=== PATIENT | female | born 1950 | race Caucasian/White ===

== ENCOUNTER 2020-10-30 00:04 | Outpatient (CLI) | payer MEDICARE, BC, SELFPAY ==
[2020-10-30 19:18] LABS: SARS-CoV-2 RNA PCR Negative
== END 2020-10-30 00:05 | disposition home or self-care (01) ==
LOC: ANHCOVIDDT 00:05
PROVIDERS: PCP Family Medicine; Visit Provider Internal Medicine Gastroenterology
DX: Z01.812 Encounter for preprocedural laboratory examination (principal); Z20.822 Contact with and (suspected) exposure to COVID-19
CPT/HCPCS: C9803; U0003; U0005

== ENCOUNTER 2020-11-02 00:20 | Day surgery (SDC) | payer MEDICARE, BC, SELFPAY ==
[2020-10-04 09:11] VITALS: BMI 37.8
--- NOTE | 2020-10-12 10:32 | PC.NURSE ---
PT WAS RE-SCHEDULED FROM 10/12/2020-INTERVIEW DONE 10/04/2020- PT DENIES ANY CHANGES IN HEALTH STATUS AND MEDICATIONS. REVIEWED DATES AND TIMES OF PROCEDURE AND TESTING WITH PATIENT
[2020-11-02 06:26] VITALS: BP 148/81; PULSE 88; RESP 16; TEMP 36.3; O2SAT 98
[2020-11-02] MEDS: LACTATED RINGERS 1,000 ML 150 ML IV CONT (06:31)
--- NOTE | 2020-11-02 07:13 | P.PNAN_ITS ---
Anes - Initial Pre Proc Eval Procedure: Operation Date: 11/02/20 07:30 Proposed Procedures p Screening Colonoscopy - Arie Hsieh MD Date/Time: 11/02/20 07:13 Surgeon: Arie Hsieh MD Pre Op Diagnosis: hx colon polyps Patient Data Age: 70 Gender: F Height: 5 ft 4 in Weight: 100.2 kg Last Vital Signs Temp 97.3 F L 11/02/20 06:26 Pulse 88 11/02/20 06:26 Resp 16 11/02/20 06:26 BP 148/81 H 11/02/20 06:26 Pulse Ox 98 11/02/20 06:26 Allergies Allergy/AdvReac Type Severity Reaction Status Date / Time Sulfa (Sulfonamide Allergy Unknown Rash Verified 11/02/20 06:25 Antibiotics) Home Medications Medication Instructions Recorded Confirmed Type indapamide 1.25 mg PO DAILY 10/04/20 10/04/20 History losartan 100 mg PO DAILY 10/04/20 10/04/20 History Patient hx anesthesia problems: none Family hx anesthesia problems: none [facility] Past Medical History Medical History (Updated 11/02/20 @ 07:11 by Yovanny Colon MD) Hyperlipidemia Hypertension Social History Social History Smoking status: Never smoker Alcohol intake: never Substance use type: does not use Living arrangements: with family Spiritual care concerns: No Anes - Eval Final PreProcedure Day of Procedure 11/02/20 07:13 Patient weight: obese Heart: regular rate and rhythm Lungs: clear to auscultation Airway: Mallampati scale class II Neurological: alert and oriented Last oral intake: >/= 8 hours ASA classification: III Emergent: no Anesthetic plan: proceed Anesthesia type and monitoring: general GIVS and standard monitoring Informed Consent: The patient's anesthetic plan and its attendant risks and benefits were discussed with the patient/family/POA. Questions were solicited and answers provided to the satisfaction of the patient/family/POA.
--- NOTE | 2020-11-02 07:20 | WPDGICN ---
Assessment and Plan Assessment and plan (1) History of colon polyps: Code(s): Z86.010 - Personal history of colonic polyps Status: Acute Assessment and Plan: Patient has a history of colon polyps. Most recent colonoscopy was in 2014. Plan is for surveillance colonoscopy at this time and at Five year intervals in the future. GI Consult Note Consult date/time: 11/02/20 07:20 HPI: Idania Holguin is a 70 year old female Seen in evaluation at the request of Dr. Mateus Rivas. patient has a history of colon polyps. Most recently 6 years ago. She presents today for follow-up examination. Her current weight appetite bowel movements are normal. She denies abdominal pain. Family history is noncontributory. Patient denies any bleeding or weight loss. Review of Systems Review of Systems: All systems reviewed & are unremarkable except as noted in HPI and below PMFSH Past Medical History Medical History (Updated 11/02/20 @ 07:22 by Arie Hsieh MD) Hyperlipidemia Hypertension Social History Social History Smoking status: Never smoker Alcohol intake: never Substance use type: does not use Living arrangements: with family Spiritual care concerns: No Meds Home Medications and Allergies Home Medications Medication Instructions Recorded Confirmed Type indapamide 1.25 mg PO DAILY 10/04/20 10/04/20 History losartan 100 mg PO DAILY 10/04/20 10/04/20 History Allergies Allergy/AdvReac Type Severity Reaction Status Date / Time Sulfa (Sulfonamide Allergy Unknown Rash Verified 11/02/20 06:25 Antibiotics) Vital Signs Vital Signs - 24 hr 11/02/20 06:26 Temperature 97.3 F L Pulse Rate 88 Respiratory Rate 16 Blood Pressure 148/81 H Pulse Oximetry 98 Exam Narrative: Exam Narrative: Physical exam reveals patient to be alert. Vital signs stable. HEENT exam is unremarkable. Lungs are clear to auscultation and percussion. Heart is without murmur or extra sounds. Abdominal exam bowel sounds are present soft nontender with no organomegaly. Digital external rectal exam is normal.
[2020-11-02 07:44] VITALS: BP 119/71; PULSE 77; RESP 19; O2SAT 100
[2020-11-02 07:54] VITALS: BP 124/73; PULSE 72; RESP 17; O2SAT 99
== END 2020-11-02 08:17 | disposition home or self-care (01) ==
PROVIDERS: PCP Family Medicine; Visit Provider Internal Medicine Gastroenterology
PROC: 0DJD8ZZ Inspection of Lower Intestinal Tract, Via Natural or Artificial Opening Endoscopic (ICD-10-PCS; CPT 45378; principal; 2020-11-02 07:30)
DX: Z12.11 Encounter for screening for malignant neoplasm of colon (principal); D12.2 Benign neoplasm of ascending colon; K57.30 Diverticulosis of large intestine without perforation or abscess without bleeding; K64.8 Other hemorrhoids; I10 Essential (primary) hypertension; E78.5 Hyperlipidemia, unspecified; E66.9 Obesity, unspecified; Z68.37 Body mass index [BMI] 37.0-37.9, adult
CPT/HCPCS: 45385; 88305; J2704; J7120

== ENCOUNTER → 2021-03-25 14:58 | Outpatient (CLI) | payer MEDICARE, BC, SELFPAY ==
--- NOTE | ~2021-03-25 | MM_ITS ---
EXAMINATION: MM screening [facility] BI w [facility] HISTORY: Screening TECHNIQUE: Craniocaudal and mediolateral oblique 3-D tomosynthesis images were obtained and synthetic 2-D images were generated. CAD analysis was submitted and interpreted. COMPARISON: Comparison to multiple prior studies sequentially, with oldest reviewed study dated 04/2018. BREAST PARENCHYMAL COMPOSITION: There are scattered areas of fibroglandular density. FINDINGS: There is no evidence of suspicious mass, calcification, or architectural distortion to sugg est malignancy in either breast. There has been no suspicious interval change. IMPRESSION: 1. No mammographic evidence of malignancy. 2. Recommend routine screening mammography in one year. BI-RADS Category 1: Negative Reviewed, dictated and finalized at location A.
--- NOTE | ~2021-03-25 | DEXA_ITS ---
Bone Density Report Name: Idania Holguin Age: 70 Sex: Female Ethnicity: White Date of : 1950 Indication: postmenopausal; screening for osteoporosis; height loss; Referring Provider: Edith Palmer Study: Bone densitometry was performed. Exam Date: March 25, 2021 Accession number: [id number] Bone Density: Region BMD T-score Z-score Classification AP Spine (L1-L4) 1.271 2.0 4.1 Normal Femoral Neck (Left) 1.013 1.5 3.3 Normal Total Hip (Left) 1.277 2.7 4.2 Normal Femoral Neck (Right) 1.065 1.9 3.7 Normal Total Hip (Right) 1.074 1.1 2.6 Normal Total Hip Mean 1.176 1.9 3.4 Normal World Health Organization criteria for BMD impression classify patients as: Normal (T-score at or above -1.0), Osteopenia (T-score between -1.0 and -2.5), or Osteoporosis (T-score at or below -2.5). 10-year Fracture Risk: FRAX not reported because: All T-scores for Spine Total, Hip Total, Femoral Neck at or above -1.0 Previous Exams: Region Exam Age BMD T-score BMD Change BMD Change Date g/cm2 vs Baseline vs Previous AP Spine(L1-L4) 03/25/2021 70 1.271 2.0 -0.035 0.006 01/28/2016 65 1.264 2.0 -0.042* 0.002 04/17/2010 59 1.262 2.0 -0.044* -0.037 08/04/2007 57 1.299 2.3 -0.007 -0.007 03/24/2005 54 1.306 2.4 Total Hip(Left) 03/25/2021 70 1.277 2.7 -0.076 0.022 01/28/2016 65 1.255 2.6 -0.098* 0.081* 04/17/2010 59 1.173 1.9 -0.179* -0.104 08/04/2007 57 1.278 2.8 -0.075 -0.075 03/24/2005 54 1.353 3.4 Total Hip(Right) 03/25/2021 70 1.074 1.1 -0.222 -0.107 01/28/2016 65 1.181 2.0 -0.115* 0.060* 04/17/2010 59 1.121 1.5 -0.175* -0.108 08/04/2007 57 1.229 2.3 -0.067 -0.067 03/24/2005 54 1.296 2.9 *Denotes significance at 95% confidence level, LSC for AP Spine = 0.022 g/cm2, LSC for Total Hip = 0.027 g/cm2 Clinical Information Provided by Patient: Patient maximum height was 64.5 Menopause Age: 58 Does not regularly consume dairy products Drinks caffeinated beverages Onset of menses at age 14 Number of children 2 Impression: The patient has normal bone mass. No significant bone loss was observed. Discussion: LOW RISK OF FRACTURE; BONE DENSITY IS WELL ABOVE THE
== END ==
PROVIDERS: PCP Family Medicine; Visit Provider Obstetrics & Gynecology
DX: Z12.31 Encounter for screening mammogram for malignant neoplasm of breast (principal); Z78.0 Asymptomatic menopausal state
CPT/HCPCS: 77063; 77067; 77080

== ENCOUNTER 2023-10-24 16:33 | Emergency (ER) | payer MEDICARE, BC, SELFPAY ==
[2023-10-24 16:44] VITALS: BP 129/69; PULSE 83; RESP 16; TEMP 37; O2SAT 99
[2023-10-24 16:46] VITALS: BP 129/69; PULSE 83; RESP 16; TEMP 37; O2SAT 99
--- NOTE | 2023-10-24 16:46 | ED.GENADULT ---
HPI - General Adult General Chief complaint: Ear Stated complaint: sharp pain both ears Time Seen by Provider: 10/24/23 16:47 Source: patient, RN notes reviewed and old records reviewed Mode of arrival: ambulatory Limitations: no limitations History of Present Illness HPI narrative: Patient did 73-year-old female presents to the [facility] with complaints of bilateral ear pain. Describes it is being very sharp. States she has stabbing pains occasionally in both ears. The left 1 started last night, right 1 started today. Denies any sinus congestion, states that she does have a scratchy throat No treatment prior to arrival Related Data Home Medications Medication Instructions Recorded Confirmed losartan 100 mg tablet 100 mg PO DAILY 10/04/20 10/24/23 turmeric root extract 500 mg tablet 500 mg PO DAILY 01/27/23 10/24/23 glucosamine sulfate 500 mg tablet 500 mg PO DAILY 10/24/23 10/24/23 (Glucosamine) Allergies Allergy/AdvReac Type Severity Reaction Status Date / Time Sulfa (Sulfonamide Allergy Unknown Rash Verified 10/24/23 16:55 Antibiotics) Review of Systems Review of Systems: All systems reviewed & are unremarkable except as noted in HPI and below Constitutional: Constitutional: Reports no additional constitutional complaints Eyes: Eyes: Reports no additional eye complaints ENT: Reports as per HPI, Reports otalgia and Reports sore throat Cardiovascular: Cardiovascular: Reports no additional cardiovascular complaints, Denies chest pain and Denies dyspnea Respiratory: Respiratory: Reports no additional respiratory complaints, Denies chest congestion, Denies cough and Denies dyspnea Gastrointestinal: Gastrointestinal: Reports no additional gastrointestinal complaints, Denies abdominal pain, Denies nausea and Denies vomiting Musculoskeletal: Musculoskeletal: Reports no additional musculoskeletal complaints Integumentary/Breasts: Skin/Breast: Reports system reviewed and no additional complaints, except as docu Neurologic: Reports system reviewed and no additional complaints, except as documented Psychiatric: Psychiatric: Reports no additional psychiatric complaints Allergic/Immunologic: Allergic/Immunologic: Reports no additional allergic/immunologic complaints PMFSH Past Medical History Medical History Hyperlipidemia Hypertensive chronic kidney disease Mild atherosclerosis of carotid artery Morbid obesity Obesity Prediabetes Primary generalized (osteo)arthritis Stage 3a chronic kidney disease Stage 3b chronic kidney disease Social History Social History Smoking status: Never smoker Second hand tobacco smoke exposure: No Alcohol intake: current Alcohol use details: occassionally Substance use: never Substance use type: does not use Lack of Transportation: No Lack of Food: Never True Current Housing: I Have Housing Concerned About Future Housing: No Difficulty Paying Gas/Electric Bills: No Difficulty Paying for Meds: No Currently Unemployed: No Living arrangements: with family Occupation/Education: retired Gender identity (if verbalized by the patient): Female Sexual Orientation (if Verbalized by the Patient): Straight or Heterosexual Spiritual care concerns: No Comments At the time of my signature, I reviewed and agree with the nursing past medical, surgical, social, and family history. There is no relevant family history pertinent to the patient complaint. Exam Const: General: cooperative, healthy appearing, comfortable, no acute distress, well developed, alert and well nourished Nutritional Appearance: well nourished Orientation/consciousness: patient oriented x3 Limitations: no limitations HENMT: Head: normal to inspection Ears: hearing grossly normal bilaterally, external ears normal, TM's normal bilaterally, EAC's normal, mastoids normal
== END 2023-10-24 17:06 | disposition home or self-care (01) ==
PROVIDERS: Emergency Provider Nurse Practitioner; PCP Family Medicine
DX: H92.03 Otalgia, bilateral (principal); E78.5 Hyperlipidemia, unspecified; I65.29 Occlusion and stenosis of unspecified carotid artery; I12.9 Hypertensive chronic kidney disease with stage 1 through stage 4 chronic kidney disease, or unspecified chronic kidney disease; N18.30 Chronic kidney disease, stage 3 unspecified; R73.03 Prediabetes; E66.01 Morbid (severe) obesity due to excess calories; Z68.34 Body mass index [BMI] 34.0-34.9, adult
CPT/HCPCS: 87081; 87880; 99213; G0463

== ENCOUNTER 2024-02-08 14:42 | Outpatient (CLI) | payer MEDICARE, BC, SELFPAY ==
--- NOTE | ~2024-02-08 | MM_ITS ---
EXAMINATION: MM screening [facility] HISTORY: Screening mammogram TECHNIQUE: Craniocaudal and mediolateral oblique 3-D tomosynthesis images were obtained and synthetic 2-D images were generated. CAD analysis was submitted and interpreted. COMPARISON: 03/25/2021 bilateral screening mammogram BREAST PARENCHYMAL COMPOSITION: There are scattered areas of fibroglandular density. FINDINGS: There is no evidence of suspicious mass, calcification, or architectural distortion to sugg est malignancy in either breast. There has been no suspicious interval change. IMPRESSION: 1. No mammographic evidence of malignancy. 2. Recommend routine screening mammography in one year. BIRADS Category 1: Negative Reviewed, dictated and finalized at location A.
== END 2024-02-08 14:43 ==
LOC: MICIMG 14:44
PROVIDERS: PCP Family Medicine; Visit Provider Family Medicine
DX: Z12.31 Encounter for screening mammogram for malignant neoplasm of breast (principal)
CPT/HCPCS: 77063; 77067

== ENCOUNTER 2025-02-09 10:13 | Outpatient (CLI) | payer MEDICARE, BC, SELFPAY ==
--- NOTE | ~2025-02-09 | MM_ITS ---
EXAMINATION: MM screening [facility] HISTORY: Screening TECHNIQUE: Craniocaudal and mediolateral oblique 3-D tomosynthesis images were obtained and synthetic 2-D images were generated. CAD analysis was submitted and interpreted. COMPARISON: Comparison to multiple prior studies sequentially, with oldest reviewed study dated 10/2015. BREAST PARENCHYMAL COMPOSITION: Not dense: There are scattered areas of fibroglandular density. FINDINGS: There is no evidence of suspicious mass, calcification, or architectural distortion to sugg est malignancy in either breast. There has been no suspicious interval change. IMPRESSION: 1. No mammographic evidence of malignancy. 2. Recommend routine screening mammography in one year. BI-RADS Category 1: Negative Reviewed, dictated and finalized at location A.
== END 2025-02-09 10:14 | disposition home or self-care (01) ==
LOC: MICIMG 10:14
PROVIDERS: PCP Family Medicine; Visit Provider Family Medicine
DX: Z12.31 Encounter for screening mammogram for malignant neoplasm of breast (principal)
CPT/HCPCS: 77063; 77067

== ENCOUNTER 2025-08-21 11:30 | Outpatient (CLI) | payer MEDICARE, BC, SELFPAY ==
--- NOTE | ~2025-08-21 | XR_ITS ---
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 Findings: No acute fracture or malalignment. Moderate to severe degenerative changes Soft tissues unremarkable. Impression: No acute fracture or malalignment. Reviewed, dictated and finalized at location P. MAKING OPERATOR Impression: No acute fracture or malalignment.
== END 2025-08-21 11:31 | disposition home or self-care (01) ==
LOC: MICIMG 11:32
PROVIDERS: PCP Family Medicine; Visit Provider Family Medicine
DX: M25.522 Pain in left elbow (principal)
CPT/HCPCS: 73080